=== PATIENT | male | born 1970 | race Asian ===

== ENCOUNTER 2019-03-28 09:00 | Emergency (ER) | payer OTHER ==
[~2019-03-28] VITALS: Ht 170.2 cm; Wt 90.9 kg
[~2019-03-28 09:00] MED LIST: ASPI81TA40 PO; LISI10TA PO; METF-444 PO; NAPR-923 PO
[2019-03-28 09:01] VITALS: BP 153/111
[2019-03-29 19:58] LABS: GLUCOSE,POINT OF CARE 151 MG/DL (70-110)
== END 2019-03-28 09:52 | disposition home or self-care (01) ==
LOC: EMS 09:02
DX: S13.4XXA Sprain of ligaments of cervical spine, initial encounter (principal); I10 Essential (primary) hypertension; E11.9 Type 2 diabetes mellitus without complications; E78.00 Pure hypercholesterolemia, unspecified; V49.40XA Driver injured in collision with unspecified motor vehicles in traffic accident, initial encounter; Y93.89 Activity, other specified; Y92.89 Other specified places as the place of occurrence of the external cause; Y99.8 Other external cause status

== ENCOUNTER 2022-04-29 05:04 | Emergency (ER) | payer OTHER ==
[~2022-04-29] VITALS: Ht 167.6 cm; Wt 97.7 kg
[~2022-04-29 05:04] MED LIST changes: +ASPI-1450 PO; -ASPI81TA40 PO; +CEPH-558 PO; -LISI10TA PO; -METF-444 PO; -NAPR-923 PO; +SIMV5TAB59 PO
[2022-04-29] MEDS ORDERED: HYDROCODONE/ACETAMINOPHEN 5-325 MG TABLET PO ONE (06:15)
[2022-04-29 08:37] VITALS: BP 149/79
[2022-04-29] MEDS ORDERED: CYCL-448 PO (08:50)
[2022-04-29] MEDS ORDERED: IBUP-2070 PO (08:51)
== END 2022-04-29 09:03 | disposition home or self-care (01) ==
LOC: EMS 05:05
DX: S16.1XXA Strain of muscle, fascia and tendon at neck level, initial encounter (principal); S20.212A Contusion of left front wall of thorax, initial encounter; I10 Essential (primary) hypertension; E11.9 Type 2 diabetes mellitus without complications; E78.00 Pure hypercholesterolemia, unspecified; F12.90 Cannabis use, unspecified, uncomplicated; Z79.899 Other long term (current) drug therapy; V49.49XA Driver injured in collision with other motor vehicles in traffic accident, initial encounter; Y93.89 Activity, other specified; Y92.89 Other specified places as the place of occurrence of the external cause; Y99.8 Other external cause status
CPT/HCPCS: 71101; 72100; 72125; 99284; Z7502; Z7610

== ENCOUNTER 2022-06-14 07:08 | Inpatient (IN) | payer MEDICAID, OTHER ==
[~2022-06-14] VITALS: Ht 170.2 cm; Wt 82.1 kg
[~2022-06-14 07:08] MED LIST changes: +CYCL-448 PO; +IBUP-2070 PO
[2022-06-14 09:36] LABS: BASOPHILS % (AUTO) 0.2 % (0.0-2.0); EOSINOPHILS % (AUTO) 0.1 % (1.0-6.0); HEMATOCRIT 45.9 % (41-53); HEMOGLOBIN 15.6 g/dL (13.5-17.5); LYMPHOCYTES # (AUTO) 1.6 K/uL (1.0-4.8); LYMPHOCYTES % (AUTO) 10.8 % (22.0-44.0); MEAN CORPUSCULAR HEMOGLOBIN 27.6 pg (26.0-34.0); MEAN CORPUSCULAR HGB CONC 33.9 G/dL (31.0-37.0); MEAN CORPUSCULAR VOLUME 82 fL (80-100); MONOCYTES # (AUTO) 0.7 K/uL (0.1-1.0); MONOCYTES % (AUTO) 4.9 % (2.0-9.0); NEUTROPHILS # (AUTO) 12.6 K/uL (1.8-7.7); PLATELET COUNT (AUTO) 276 K/uL (150-450); RED BLOOD CELL COUNT(AUTO) 5.63 MIL/uL (4.50-5.90)
[2022-06-14 09:43] LABS: ANION GAP 7 mmol/L (8-16); CALCIUM, TOTAL 8.7 mg/dL (8.8-10.5); CARBON DIOXIDE 23 mmol/L (22-29); CHLORIDE 98 mmol/L (98-107); CREATININE 0.84 mg/dL (0.60-1.30); GLOMERULAR FILTR. RATE CALC > 60 mL/min (>60); GLUCOSE,RANDOM 298 mg/dL (70-110); POTASSIUM 3.9 mmol/L (3.5-5.1); SODIUM SERUM 128 mmol/L (136-145); UREA NITROGEN, BLOOD 6 mg/dL (7-18)
[2022-06-14 09:49] LABS: ALANINE AMINOTRANSFERASE 21 U/L (12-78); ALBUMIN 3.9 g/dL (3.4-5.0); ALKALINE PHOSPHATASE 58 U/L (46-116); ASPARTATE AMINOTRANSFERASE 13 U/L (15-37); BILIRUBIN,TOTAL 0.8 mg/dL (0.1-1.0); TOTAL PROTEIN, SERUM 7.8 g/dL (6.4-8.2)
[2022-06-14] MEDS ORDERED: ZOLPIDEM TARTRATE 10 MG TABLET PO PRN (10:45)
[2022-06-14] MEDS ORDERED: LORazepam 2 MG TABLET PO ONE (10:45)
[2022-06-14] MEDS ORDERED: HALOPERIDOL 5 MG TABLET PO PRN (10:45)
[2022-06-14 10:51] LABS: COVID AG,FIA SOURCE NASOPHARYNGEAL
[2022-06-14 14:42] LABS: APPEARANCE,URINE CLEAR (CLEAR); BILIRUBIN,URINE NEGATIVE (NEGATIVE); GLUCOSE, URINE (UA) >=1000 mg/dL (NEGATIVE); KETONES,URINE TRACE mg/dL (NEGATIVE); LEUKOCYTE ESTERASE ,URINE NEGATIVE (NEGATIVE); NITRATE,URINE NEGATIVE (NEGATIVE); OCCULT BLOOD,URINE NEGATIVE (NEGATIVE); PROTEIN,URINE NEGATIVE (NEGATIVE); SPECIFIC GRAVITIY, URINE 1.024 (1.003-1.030)
[2022-06-14 14:48] LABS: AMPHET/METH SCREEN,URINE NEGATIVE (NEGATIVE); BARBITURATE SCREEN, URINE NEGATIVE (NEGATIVE); BENZODIAZEPINES SCREEN,URINE NEGATIVE (NEGATIVE); CANNABINOID SCREEN,URINE POSITIVE (NEGATIVE); COCAINE SCREEN,URINE NEGATIVE (NEGATIVE); METHADONE SCREEN, URINE NEGATIVE (NEGATIVE); OPIATE SCREEN,URINE NEGATIVE (NEGATIVE)
[2022-06-14 14:50] LABS: PHENCYCLIDINE SCREEN,URINE NEGATIVE (NEGATIVE)
[2022-06-14 14:51] LABS: BACTERIA,URINE None Seen /HPF (None Seen); RBC,URINE 0-2 /HPF (0-2); SQUAMOUS EPITHELIAL CELL,UR Few /LPF (None Seen); WBC,URINE 0-2 /HPF (0-5)
[2022-06-14 14:51] LABS: GLUCOMETER DEV NAME(LOC) ERT.5; GLUCOSE,POINT OF CARE 279 MG/DL (70-110)
[2022-06-14] MEDS: LORazepam 2 MG TABLET PO PRN (16:02)
[2022-06-14 16:55] VITALS: BP 153/96
[2022-06-14 22:41] LABS: GLUCOMETER DEV NAME(LOC) 3E.I 2; GLUCOSE,POINT OF CARE 227 MG/DL (70-110)
[2022-06-15 05:41] LABS: GLUCOMETER DEV NAME(LOC) 3E.I 2; GLUCOSE,POINT OF CARE 277 MG/DL (70-110)
[2022-06-15] MEDS ORDERED: IBUPROFEN 400 MG TABLET PO PRN (06:15)
[2022-06-15] MEDS ORDERED: GuaiFENesin/D-METHORPHAN [SUGAR-FREE] 200-20MG/10 ML SYRUP UDCUP PO PRN (06:15)
[2022-06-15] MEDS ORDERED: ONDANSETRON HCL 4 MG TABLET PO PRN (06:15)
[2022-06-15] MEDS ORDERED: LOPERAMIDE HCL 2 MG CAPSULE PO PRN (06:15)
[2022-06-15] MEDS ORDERED: PETROLATUM,WHITE 28 GM JELLY TP PRN (06:15)
[2022-06-15] MEDS ORDERED: MAG HYDROX/AL HYDROX/SIMETH ES 30 ML SUSPENSION UDCUP PO PRN (06:15)
[2022-06-15] MEDS ORDERED: CloNIDine HCL 0.1 MG TABLET PO PRN (06:15)
[2022-06-15] MEDS ORDERED: ACETAMINOPHEN 325 MG TABLET PO PRN (06:15)
[2022-06-15] MEDS ORDERED: MAGNESIUM HYDROXIDE SUSPENSION 30 ML UDCUP PO PRN (06:15)
[2022-06-15] MEDS ORDERED: ALBUTEROL SULFATE HFA 90 MCG/PUFF 8 GM INHALER IH PRN (06:15)
[2022-06-15] MEDS ORDERED: NICOTINE 14 MG/24 HOUR PATCH TD PRN (06:15)
[2022-06-15] MEDS ORDERED: CYCLOBENZAPRINE HCL 10 MG TABLET PO PRN (06:15)
[2022-06-15] MEDS ORDERED: DOCUSATE SODIUM 100 MG CAPSULE PO PRN (06:15)
[2022-06-15] MEDS ORDERED: DEXTROSE 50%-WATER 25 GM/50 ML SYRINGE IVP PRN (06:45)
[2022-06-15 06:50] VITALS: BP 161/97
[2022-06-15] MEDS: LORazepam 2 MG TABLET PO PRN ×3 (06:55→14:26)
[2022-06-15] MEDS: INSULIN LISPRO 100 UNITS/ML SQ PRN ×4 (07:09→21:35)
[2022-06-15] MEDS: ASPIRIN 81 MG CHEWABLE TABLET PO SCH (08:53)
[2022-06-15] MEDS: SIMVASTATIN 10 MG TABLET PO SCH ×2 (09:27→21:17)
[2022-06-15 09:59] VITALS: BP 168/100
[2022-06-15 11:41] LABS: GLUCOMETER DEV NAME(LOC) 3EX.2; GLUCOSE,POINT OF CARE 222 MG/DL (70-110)
[2022-06-15] MEDS: ESCITALOPRAM OXALATE 10 MG TABLET PO SCH (14:50)
[2022-06-15 16:45] VITALS: BP 159/107
[2022-06-15 17:01] LABS: GLUCOMETER DEV NAME(LOC) 3EX.2; GLUCOSE,POINT OF CARE 249 MG/DL (70-110)
[2022-06-15 21:27] LABS: GLUCOMETER DEV NAME(LOC) 3EX.2; GLUCOSE,POINT OF CARE 232 MG/DL (70-110)
[2022-06-16 04:59] VITALS: BP 140/80
[2022-06-16] MEDS: LORazepam 2 MG TABLET PO PRN ×2 (05:51→11:11)
[2022-06-16] MEDS: INSULIN LISPRO 100 UNITS/ML SQ PRN ×2 (06:40→11:17)
[2022-06-16 06:46] LABS: GLUCOMETER DEV NAME(LOC) 3E.I 2; GLUCOSE,POINT OF CARE 289 MG/DL (70-110)
[2022-06-16] MEDS: ESCITALOPRAM OXALATE 10 MG TABLET PO SCH (08:29)
[2022-06-16] MEDS: ASPIRIN 81 MG CHEWABLE TABLET PO SCH (08:29)
[2022-06-16 11:26] LABS: GLUCOMETER DEV NAME(LOC) 3E.I 2; GLUCOSE,POINT OF CARE 236 MG/DL (70-110)
[2022-06-16] MEDS ORDERED: ESCI-8 PO (11:39)
[2022-06-16] MEDS ORDERED: ESCI10 PO (12:48)
== END 2022-06-16 13:30 | disposition home or self-care (01) | DRG 751 ==
LOC: EMS 07:09 → 3EI 16:01
PROVIDERS: ADMIT Psychiatry & Neurology Child & Adolescent Psychiatry; ATTEND Psychiatry & Neurology Child & Adolescent Psychiatry
DX: F33.2 Major depressive disorder, recurrent severe without psychotic features (principal); E87.1 Hypo-osmolality and hyponatremia; R45.851 Suicidal ideations; E11.65 Type 2 diabetes mellitus with hyperglycemia; Z20.822 Contact with and (suspected) exposure to COVID-19; E78.00 Pure hypercholesterolemia, unspecified; F12.10 Cannabis abuse, uncomplicated; G89.29 Other chronic pain; I10 Essential (primary) hypertension
CPT/HCPCS: 80053; 81001; 82962; 83036; 85025; 99285; G0480